=== PATIENT | male | born 1975 | race Caucasian/White ===

== ENCOUNTER 2019-11-23 20:50 | Observation (INO) ==
[2019-11-23] MEDS ORDERED: IOPAMIDOL 100 ML BOTTLE IV ONE (20:51)
[2019-11-23] MEDS ORDERED: KETOROLAC 30 MG/ML VIAL IV ONE (21:06)
[2019-11-23] MEDS ORDERED: 0.9 % SODIUM CHLORIDE 1,000 ML IV ONE (21:06)
--- NOTE | 2019-11-23 21:12 | Emergency Department Note ---
Abdominal Pain HPI - General Source: patient Mode of arrival: ambulatory Limitations: no limitations <Juan M Anders - Last Filed: 11/23/19 21:55> <Shmuel Payne - Last Filed: 11/24/19 09:48> - General Chief Complaint: Abdominal Pain Stated Complaint: abdominal pain Time Seen by Provider: 11/23/19 20:53 - History of Present Illness HPI Narrative: 44-year-old male patient presents emergency department chief complaint of sudden onset right lower quadrant abdominal pain x 10 hours. Patient tells me the pain abruptly started around 1100 this morning and is progressively worsened. He had one episode of diarrhea and thought he would get a bit better. Unfortunately the pain has persisted and worsened. He is unable to stand straight up. He describes the pain as a deep, sharp, stabbing pain to the right lower quadrant. He does still have his appendix. He denies fever, sweats, chills. He denies sinus congestion, cough, or runny nose. He denies shortness of breath. He denies retrosternal chest pain or palpitations. He denies nausea and vomiting. He denies dysuria or gross hematuria. He denies a history of renal calculi. He denies focal weakness. A review of his active problems shows the following: Palpitations, sinusitis, cholesteatoma, hypertension, and anxiety. (Juan M Anders) Right lower quadrant is been going on all day. Worsening with walking and standing. No recent trauma. No fever (Shmuel Payne) - Related Data Home Medications Medication Instructions Recorded Confirmed fluoxetine 10 mg tablet 20 mg PO QDAY 08/04/17 11/24/19 lisinopril 10 1 tab PO QDAY 08/04/17 11/24/19 mg-hydrochlorothiazide 12.5 mg tablet Metoprolol [place]/Hydrochlorothiaz 1 tab PO DAILY 11/23/19 11/24/19 [Metoprolol ER-Hctz 25-12.5 mg] Allergies Allergy/AdvReac Type Severity Reaction Status Date / Time No Known Drug Allergies Allergy Unverified 03/24/19 17:50 Review of Systems All systems ED: reviewed and negative except as stated. <Juan M Anders - Last Filed: 11/23/19 21:55> Abdominal Pain PMH - Social History Smoking status: Never smoker <MartitaJuan M Andre - Last Filed: 11/23/19 21:55> Physical Exam Limitations: no limitations General appearance: alert, grimacing, in no apparent distress (No acute respiratory distress), other (Well-developed, well-nourished 44-year-old male patient laying supine on the emergency room gurney in no distress until abdominal examination.) Head: atraumatic, normocephalic Eye: Present: normal appearance, PERRL, EOMI. Absent: scleral icterus, conjunctival injection ENT: Present: normal oropharynx, mucous membranes moist Neck: Present: trachea midline. Absent: lymphadenopathy, thyromegaly Chest: Present: symmetric chest wall rise Respiratory: Present: normal lung sounds bilaterally. Absent: respiratory distress, wheezes, stridor, accessory muscle use, prolonged expiratory phase Cardiovascular: Present: regular rate, normal rhythm. Absent: systolic murmur, diastolic murmur Abdominal: Present: soft, tenderness, guarding, rebound, hyperactive bowel sounds, psoas sign, tenderness at McBurney's Point. Absent: distention, rigidity, organomegaly, obturator sign, heel tap sign, mass Abdominal tenderness: Present: RLQ, severe Extremities: Present: normal inspection, full ROM, normal capillary refill Back: Present: normal inspection, full ROM Neurological: Present: alert, oriented X3 Psychiatric: Present: normal affect, normal mood Skin: Present: warm, dry, normal color <Juan M Anders - Last Filed: 11/23/19 21:55> <Shmuel Payne - Last Filed: 11/24/19 09:48> Significant right lower quadrant tenderness identified (Shmuel Payne) Course <Juan M Anders - Last Filed: 11/23/19 21:55> Course Narrative: Patient brought into the emergency department and a history and examination was performed. Saline lock was established and laboratory studies were drawn. CT scan of the abdomen and pelvis with contrast was ordered and reviewed. Patient was given normal saline 1000 mL bolus. Patient was also given 30 mg of Toradol IVP. Review the patient's preliminary laboratory studies at shift change show the following: CBC WBC 13.7, with a left shift. Chemistry panel showing glucose 125, ionized calcium 1.15, and all others normal limits. His CMP and CT scan results are pending. I discussed the case briefly with my collaborating physician (Dr. Payne) who is assumed the patient's care at shift change. All further treatment decisions and modalities will be carried out by Dr. Payne. (Juan M Anders) Vital Signs Temperature 98.6 F 11/23/19 20:51 Pulse Rate 103 H 11/23/19 20:51 Respiratory Rate 18 11/23/19 20:51 Blood Pressure 140/88 11/23/19 20:51 Pulse Oximetry (%) 97 11/23/19 20:51 Temperature 97.8 F 11/24/19 08:00 Pulse Rate 71 11/24/19 08:00 Respiratory Rate 18 11/24/19 08:00 Blood Pressure 103/65 11/24/19 08:00 Pulse Oximetry (%) 97 11/24/19 08:00 Abdominal Pain - Lab Data Lab results reviewed: Yes I reviewed the patient's lab results. Result diagrams: 11/23/19 21:17 11/23/19 21:17 <Juan M Anders - Last Filed: 11/23/19 21:55> - Lab Data Lab results reviewed: Yes I reviewed the patient's lab results. Result diagrams: 11/23/19 21:17 11/23/19 21:17 - Radiology Data Radiology results reviewed: Yes I reviewed the patient's radiology results. <Shmuel Payne - Last Filed: 11/24/19 09:48> - Lab Data Lab Results 11/23/19 11/23/19 11/23/19 Range/Units 21:17 21:17 21:19 WBC 13.7 H (4.50-11.00) K/mcL RBC 5.23 (4.63-6.08) M/mcL Hgb 15.3 (13.7-17.5) g/dL Hct 43.2 (40.1-51.0) % POC Hct 44.0 (41.0-55.0) % MCV 82.6 (80.0-100.0) fL MCH 29.3 (26.0-34.0) pg MCHC 35.4 (31.0-36.0) g/dL RDW 12.8 (11.5-14.5) % Plt Count 276 (140-440) K/mcL MPV 10.3 (7.4-10.4) fL Gran % 84.4 H (38.0-78.0) % Lymph % (Auto) 9.4 L (15.5-49.0) % [place] % (Auto) 5.6 (1.0-12.0) % Eos % (Auto) 0.2 (0.0-7.0) % Baso % (Auto) 0.4 (0.0-2.0) % Gran # 11.52 H (1.80-8.00) K/mcL Lymph # (Auto) 1.29 L (1.50-4.80) K/mcL [place]on # (Auto) 0.77 (0.10-0.90) K/mcL Eos # (Auto) 0.03 (0.00-0.70) K/mcL Baso # (Auto) 0.05 (0.00-0.30) K/mcL POC Sodium 138 (133-145) mmol/L Sodium 135 (133-145) mmol/L POC Potassium 3.4 (3.3-5.1) mmol/L Potassium 3.4 (3.3-5.1) mmol/L POC Chloride 102 (96-108) mmol/L Chloride 96 (96-108) mmol/L Carbon Dioxide 21 L (22-30) mmol/L POC Total CO2 23 (22-30) mmol/L Anion Gap 18.0 H (8-16) POC BUN 13 (6-20) mg/dl BUN 13 (6-20) mg/dl Creatinine 1.0 (0.7-1.2) mg/dl POC Creatinine 0.9 (0.7-1.2) mg/dl GFR Calculation 90 Glucose 127 H (70-105) mg/dL POC Glucose 125 H (70-105) mg/dL Calcium 10.0 (8.6-10.4) mg/dl POC WB Ioniz Calcium 1.15 L (1.16-1.32) mmol/L Total Bilirubin 0.7 (0.0-1.0) mg/dL AST 27 (0-37) U/l ALT 30 (0-40) U/l Alkaline Phosphatase 58 (39-117) U/L Total Protein 7.4 (5.9-8.4) gm/dL Albumin 4.8 (3.2-5.2) gm/dL Globulin 2.6 (2.2-3.7) gm/dL Albumin/Globulin Ratio 1.8 (1.0-2.3) - Radiology Data CT scan of the abdomen pelvis with contrast shows acute appendicitis. Please see full report (Shmuel Payne) Disposition Pt seen by ADMISSIONS SUPERVISOR/PA only: No (Dr. Payne.) <Juan M Anders - Last Filed: 11/23/19 21:55> Pt seen by ADMISSIONS SUPERVISOR/PA only: No <Shmuel Payne - Last Filed: 11/24/19 09:48> Clinical Impression: Abdominal pain Qualifiers: Abdominal location: right lower quadrant Qualified Code(s): R10.31 - Right lower quadrant pain Acute appendicitis Qualifiers: Acute appendicitis type: with localized peritonitis Appendicitis gangrene presence: unspecified whether gangrene present Appendicitis perforation presence: without perforation Appendicitis abscess presence: without abscess Dayne lified Code(s): K35.30 - Acute appendicitis with localized peritonitis, without perforation or gangrene Summary: I saw this patient with Juan M Anders PA-C. I agree with his evaluation management documentation. At shift change patient's management was turned over to me. Initially saw this patient when he came in first but then Martita ended up assuming care because our ER was quite busy. He weighs we were very suspicious for appendicitis and ordered CT scan of the abdomen pelvis. Laboratory corroborates. CT scan showed acute appendicitis. Discussed case with Dr. Danny Gil who agreed to accept the patient for further care and evaluation in the hospital. I agreed to write transition orders and keep him n.p.o. after midnight. Dr. Gil will see him in the morning and plans to take him to the operating room tomorrow morning. We will run antibiotics in the interim-Zosyn I took the time to discuss the plan with the patient and his family and they were agreeable with that (Shmuel Payne) Disposition: Xfer As Inpt ([facility]) Condition: Good
[2019-11-23 21:27] LABS: POC Blood Urea Nitrogen 13 mg/dl (6-20); POC CO2 23 mmol/L (22-30); POC Calcium, Ionized 1.15 mmol/L (1.16-1.32); POC Chloride 102 mmol/L (96-108); POC Creatinine 0.9 mg/dl (0.7-1.2); POC Glucose, Random 125 mg/dL (70-105); POC Potassium 3.4 mmol/L (3.3-5.1); POC Sodium 138 mmol/L (133-145)
[2019-11-23 21:51] LABS: Basophils # (Auto) 0.05 K/mcL (0.00-0.30); Basophils % (Auto) 0.4 % (0.0-2.0); Eosinophils # (Auto) 0.03 K/mcL (0.00-0.70); Eosinophils % (Auto) 0.2 % (0.0-7.0); Granulocytes % (Auto) 84.4 % (38.0-78.0); Hematocrit 43.2 % (40.1-51.0); Hemoglobin 15.3 g/dL (13.7-17.5); Lymphocytes # (Auto) 1.29 K/mcL (1.50-4.80); Lymphocytes % (Auto) 9.4 % (15.5-49.0); Mean Cell Volume 82.6 fL (80.0-100.0); Mean Corpuscular HGB Conc 35.4 g/dL (31.0-36.0); Mean Platelet Volume 10.3 fL (7.4-10.4); Monocytes # (Auto) 0.77 K/mcL (0.10-0.90); Monocytes % (Auto) 5.6 % (1.0-12.0); Platelet Count 276 K/mcL (140-440); RBC 5.23 M/mcL (4.63-6.08); Red Cell Distribution Width 12.8 % (11.5-14.5); WBC 13.7 K/mcL (4.50-11.00)
[2019-11-23 22:08] LABS: ALT/SGPT 30 U/l (0-40); AST/SGOT 27 U/l (0-37); Albumin 4.8 gm/dL (3.2-5.2); Albumin/Globulin Ratio 1.8 (1.0-2.3); Alkaline Phosphatase 58 U/L (39-117); Bilirubin,Total 0.7 mg/dL (0.0-1.0); Blood Urea Nitrogen 13 mg/dl (6-20); Carbon Dioxide 21 mmol/L (22-30); Chloride 96 mmol/L (96-108); Globulin 2.6 gm/dL (2.2-3.7); Glomerular Filtration Rate 90; Glucose 127 mg/dL (70-105)
[2019-11-23] MEDS ORDERED: PIPERACILLIN SODIUM/TAZOBACTAM 3.375 GM in DEXTROSE 5% IN WATER 50 ML IV ONE (22:28)
[2019-11-23] MEDS ORDERED: ONDANSETRON 4 MG/2 ML VIAL IV ONE (22:29)
[2019-11-23] MEDS ORDERED: HYDROmorphone 2 MG/ML VIAL IV SCH (22:30)
[2019-11-23] MEDS ORDERED: ONDANSETRON 4 MG/2 ML VIAL IV PRN (22:41)
[2019-11-23] MEDS ORDERED: NALOXONE HCL 0.4 MG/ML VIAL IV PRN (22:41)
[2019-11-24] MEDS: 0.9 % SODIUM CHLORIDE 1,000 ML IV SCH ×4 (00:07→20:22)
[2019-11-24] MEDS ORDERED: ACETAMINOPHEN 1,000 MG/100 ML BOTTLE IV PRN ×2 (03:26→13:10)
[2019-11-24] MEDS ORDERED: HYDROmorphone 2 MG/ML VIAL IV PRN ×3 (03:28→13:10)
[2019-11-24] MEDS ORDERED: ACETAMINOPHEN 1,000 MG/100 ML BOTTLE IV ONE ×3 (03:29→13:10)
--- NOTE | 2019-11-24 07:54 | Cat Scan Report ---
History: Right lower quadrant pain TECHNIQUE: The patient was imaged following intravenous but no oral contrast scanning during the portal venous phase from the diaphragm to the symphysis pubis. Sagittal and coronal reformats are created. The radiation exposure was limited using dose reduction technology. FINDINGS: The lung bases are clear. The liver is normal size but there is mild to moderate generalized fatty infiltration. The gallbladder and bile ducts are normal. The spleen, pancreas, adrenals and kidneys are normal. The aorta and inferior vena cava are normal and there is no atherosclerotic disease. The appendix is enlarged and inflamed. Measures 1.2 cm in transverse dimension. There is periappendiceal inflammation of the fat but no abscess or free fluid are present. There is no appendicolith. The remainder of the large and small intestine are normal and there is no bowel obstruction or ileus. No ascites is present. Bladder, prostate and seminal vesicles are normal. There is no adenopathy. IMPRESSION: Acute appendicitis Fatty infiltration of the liver Interpreted and Authenticated by: Candido Youssef 11/24/19
[2019-11-24 08:47] LABS: Appearance,Urine CLEAR; Bacteria,Urine 0 /hpf (0); Bilirubin,Urine NEG (NEG); Color,Urine YELLOW; Culture Indicated,Urine NO; Glucose,Urine (UA) NEGATIVE (NEG); Ketones,Urine NEG (NEG); Leukocyte Esterase,Urine NEG /uL (NEG); Mucus,Urine FEW /hpf (0); Nitrate,Urine NEG (NEG); Protein,Urine NEG (NEG); Urine Blood 0.2 mg/dL (<0.03); Urine RBC 1 /hpf (0-1); Urine Squamous Epithelial Cell 0 /hpf (0-4); Urine WBC 1 /hpf (0-4); Urobilinogen,Urine NEG (NEG)
--- NOTE | 2019-11-24 11:15 | General Surg History&Physical ---
History of Present Illness Patient information: Note initiated : 11/24/19 at 11:12 am Service Date, if different from initiated Date: [] Patient: Lucio Alford a 44 y/o M admitted on 11/23/19 for abdominal pain. Chief Complaint: [] HPI: Mr. Alford is a 44 year old M admitted with acute appendicitis. He had onset of pain in his right lower quadrant yesterday morning. It progressed throughout the day became more severe. He denies nausea, vomiting, fever, sweats or change in bowel habits. He was seen in the emergency room because of severe pain and CT confirms acute appendicitis. He is counseled and will have surgery later today.. Review of Systems All systems PM: reviewed and no additional remarkable complaints except as stated (negative except as noted in HPI and below) - Constitutional headache(s) ( L obesity tolerate Lobatos,) Past History Past medical history: Hypertension Past surgical history: Arthroscopic surgery, left shoulder. Arthroscopic surgery left knee. . Ear surgery 2 for cholesteatoma Past family history: Mother age 72 due to stroke; she also had diabetes and hypertension Father alive in good health Past social history: Never smoker Medications and Allergies Home Medications Medication Instructions Recorded Confirmed Type fluoxetine 10 mg tablet 20 mg PO QDAY 08/04/17 12/06/19 History lisinopril 10 1 tab PO QDAY 08/04/17 12/06/19 History mg-hydrochlorothiazide 12.5 mg tablet Metoprolol [place]/Hydrochlorothiaz 1 tab PO DAILY 11/23/19 12/06/19 History [Metoprolol ER-Hctz 25-12.5 mg] Allergies Allergy/AdvReac Type Severity Reaction Status Date / Time No Known Drug Allergies Allergy Unverified 12/06/19 10:29 Exam Temp Pulse Resp BP Pulse Ox 97.8 F 71 18 103/65 97 11/24/19 08:00 11/24/19 08:00 11/24/19 08:00 11/24/19 08:00 11/24/19 08:00 - General physical appearance well developed, well nourished, no distress - Eyes PERRL, normal ocular movement - ENT normal pinna, normal nares, normal mucosa, no hearing loss, no congestion - Head Head exam IM: Present: atraumatic, normocephalic - Neck no masses, no bruits, trachea midline, no lymphadenopathy, no venous distension - Cardiovascular Cardiovascular exam IM: Present: normal rate and rhythm - Respiratory normal expansion, normal respiratory effort, clear to percussion, clear to auscultation - Abdomen Abdomen: Present: soft, tender (tenderness with mild guarding right lower quadrant; active bowel sounds), bowel sounds Hernia: Present: none - Genitourinary Present: normal penis with no external lesions - Integumentary Present: no rash, no growths, no abnormal pigmentation - Neurologic Present: normal coordination, normal sensation - Musculoskeletal Present: normal gait ( ), normal posture - Psychiatric Present: oriented to time ( weight less than 10), oriented to person, oriented to place, speech is normal, memory intact Assessment and Plan (1) Acute appendicitis Patient is counseled for laparoscopic appendectomy. His preoperative evaluation is complete. His surgery will be performed later today. Status: Acute Comment: laparoscopic appendectomy 24 November 2019 Qualifiers: Acute appendicitis type: with localized peritonitis Appendicitis gangrene presence: unspecified whether gangrene present Appendicitis perforation presence: without perforation Appendicitis abscess presence: without abscess Qualified Code(s): K35.30 - Acute appendicitis with localized peritonitis, without perforation or gangrene (2) Hypertension, essential Status: Chronic
[2019-11-24] MEDS ORDERED: SCOPOLAMINE 1 PATCH PATCH TOPICAL PRN ×2 (11:16→13:10)
[2019-11-24] MEDS ORDERED: IPRATROPIUM/ALBUTEROL 3 ML AMPUL.NEB NEB PRN ×4 (11:16→13:10)
[2019-11-24] MEDS ORDERED: PIPERACILLIN SODIUM/TAZOBACTAM 3.375 GM in DEXTROSE 5% IN WATER 50 ML IV SCH (12:00)
[2019-11-24] MEDS ORDERED: LIDOCAINE HCL/PF 100 MG/5 ML SYRINGE IV ONE (12:09)
[2019-11-24] MEDS ORDERED: PROPOFOL 200 MG/20 ML VIAL IV ONE (12:09)
[2019-11-24] MEDS ORDERED: GLYCOPYRROLATE 0.2 MG/ML VIAL IV ONE (12:09)
[2019-11-24] MEDS ORDERED: fentaNYL 100 MCG/2 ML VIAL IV ONE (12:09)
[2019-11-24] MEDS ORDERED: DEXAMETHASONE 10 MG/ML VIAL IV ONE (12:09)
[2019-11-24] MEDS ORDERED: SUGAMMADEX SODIUM 200 MG/2 ML VIAL IV ONE (12:09)
[2019-11-24] MEDS ORDERED: KETAMINE 100 MG/ML ML IV ONE (12:09)
[2019-11-24] MEDS ORDERED: MIDAZOLAM 2 MG/2 ML VIAL IV ONE (12:09)
[2019-11-24] MEDS ORDERED: ROCURONIUM 10 MG/ML ML IV ONE (12:09)
[2019-11-24] MEDS ORDERED: ONDANSETRON 4 MG/2 ML VIAL IV ONE (12:09)
[2019-11-24] MEDS ORDERED: ONDANSETRON 4 MG/2 ML VIAL IV PRN ×3 (12:39→13:10)
[2019-11-24] MEDS ORDERED: KETOROLAC 30 MG/ML VIAL IV PRN ×2 (12:39→13:10)
[2019-11-24] MEDS ORDERED: fentaNYL 100 MCG/2 ML VIAL IV PRN ×2 (12:39→13:10)
[2019-11-24] MEDS ORDERED: BENZOCAINE/MENTHOL 1 LOZENGE PO PRN ×2 (12:39→13:10)
[2019-11-24] MEDS ORDERED: LACTATED RINGERS 1,000 ML IV SCH ×2 (12:45→13:10)
--- NOTE | 2019-11-24 12:49 | Brief Operative Note ---
Date of procedure: 11/24/19 Pre-op diagnosis: acute appendicitis Post-op diagnosis: other (acute appendicitis) Procedure: LAPAROSCOPIC APPENDECTOMY Grafts/Implants: No Anesthesia: GETA Findings: ACUTE SUPPURATIVE APPENDICITIS Complications: none Surgeon: Yari Gil Estimated blood loss (cc): 10 Specimens Removed/Pathology: other (APPENDIX) Condition: stable Disposition: PACU
[2019-11-24] MEDS ORDERED: NALOXONE HCL 0.4 MG/ML VIAL IV PRN (13:10)
[2019-11-24] MEDS ORDERED: MEPERIDINE 25 MG/ML SYRINGE IV PRN (13:10)
[2019-11-24] MEDS ORDERED: MEPERIDINE 50 MG/ML INJECTION ONE (13:24)
[2019-11-24] MEDS: MEPERIDINE 25 MG/ML SYRINGE IV PRN ×2 (13:26→13:35)
[2019-11-24] MEDS: PIPERACILLIN SODIUM/TAZOBACTAM 3.375 GM in DEXTROSE 5% IN WATER 50 ML IV SCH (17:57)
[2019-11-24] MEDS: HYDROmorphone 2 MG/ML VIAL IV PRN ×3 (18:08→22:32)
[2019-11-25] MEDS: PIPERACILLIN SODIUM/TAZOBACTAM 3.375 GM in DEXTROSE 5% IN WATER 50 ML IV SCH ×3 (00:41→11:17)
[2019-11-25] MEDS: HYDROmorphone 2 MG/ML VIAL IV PRN ×4 (02:28→14:55)
[2019-11-25] MEDS: 0.9 % SODIUM CHLORIDE 1,000 ML IV SCH ×2 (03:38→08:56)
[2019-11-25] MEDS ORDERED: FLUoxetine HCL 20 MG CAPSULE PO SCH ×2 (09:00)
[2019-11-25] MEDS ORDERED: DOCUSATE SODIUM 100 MG CAPSULE PO PRN (09:37)
[2019-11-25 10:26] LABS: Basophils # (Auto) 0.01 K/mcL (0.00-0.30); Basophils % (Auto) 0.1 % (0.0-2.0); Eosinophils # (Auto) 0 K/mcL (0.00-0.70); Eosinophils % (Auto) 0 % (0.0-7.0); Granulocytes % (Auto) 85.9 % (38.0-78.0); Hematocrit 37.9 % (40.1-51.0); Hemoglobin 13.1 g/dL (13.7-17.5); Lymphocytes # (Auto) 0.79 K/mcL (1.50-4.80); Lymphocytes % (Auto) 7.4 % (15.5-49.0); Mean Cell Volume 84.8 fL (80.0-100.0); Mean Corpuscular HGB Conc 34.6 g/dL (31.0-36.0); Mean Platelet Volume 10.6 fL (7.4-10.4); Monocytes % (Auto) 6.6 % (1.0-12.0); Platelet Count 250 K/mcL (140-440); RBC 4.47 M/mcL (4.63-6.08); Red Cell Distribution Width 12.9 % (11.5-14.5); WBC 10.6 K/mcL (4.50-11.00)
--- NOTE | 2019-11-25 13:39 | Surgical Pathology Report ---
HISTOLOGY SPECIMEN MICROSCOPIC DIAGNOSIS APPENDIX, APPENDECTOMY: -- ACUTE APPENDICITIS WITH SEROSITIS. (DMT:adj) PROCEDURAL IMPRESSION Acute appendicitis. GROSS DESCRIPTION Received in formalin designated appendix, is a aguilera-sheldon appendix with sheldon attached fat. It is 9.2 cm in length by 0.8 cm in diameter. The margin is stapled. It is inked black. There is possible aguilera-sheldon exudate on the serosal surface. Sectioning shows pink-sheldon fluid. Grossly there are no perforations identified. Information Systems Administrator sections are submitted in one cassette. (SCB:adj) Electronically Signed by: Cam Barron M.D.
--- NOTE | 2019-11-25 15:16 | Discharge Summary ---
Providers - Providers Patient information: Note initiated : 11/25/19 at 3:12 pm Service Date, if different from initiated Date: [] Patient: Lucio Alford 44 y/o M admitted on 11/23/19 for abdominal pain. Chief Complaint: [] Date of admission: 11/23/19 Discharge date: 11/25/19 Attending physician: Yari Gil Hospitalization Hospital Course: 44-year-old male presents right lower quadrant pain. He was evaluated in the emergency room with findings of acute appendicitis. He was admitted and underwent laparoscopic appendectomy uneventfully. He is progressing well and is pain is fairly well controlled. He is tolerating diet and having flatus. He is stable enough for discharge. White blood count was normal. Discharge diagnosis: acute appendicitis Reason for admission: abdominal pain nausea and vomiting Procedures: Laparoscopic appendectomy Pertinent studies/significant findings: CT of abdomen and pelvis with contrast Complications: None Exam Temp Pulse Resp BP Pulse Ox 98.1 F 84 18 123/74 95 11/25/19 11:51 11/25/19 11:51 11/25/19 11:51 11/25/19 11:51 11/25/19 11:51 - General physical appearance well developed, well nourished, no distress - Eyes PERRL, normal ocular movement - ENT normal pinna, normal nares, normal mucosa, no hearing loss, no congestion - Head Head exam IM: Present: atraumatic, normocephalic - Neck no masses, no bruits, trachea midline, no lymphadenopathy, no venous distension - Cardiovascular Cardiovascular exam IM: Present: normal rate and rhythm - Respiratory normal expansion, normal respiratory effort, clear to percussion, clear to auscultation - Abdomen Abdomen: Present: soft, tender (mild tenderness in the lower abdomen and right lower quadrant; good active bowel sounds; mild distention), bowel sounds Hernia: Present: none - Genitourinary Present: normal penis with no external lesions - Integumentary Present: no rash, no growths, no abnormal pigmentation - Neurologic Present: normal coordination, normal sensation - Musculoskeletal Present: normal gait, normal posture - Psychiatric Present: oriented to time, oriented to person, oriented to place, speech is normal, memory intact Discharge Plan - Patient/Caregiver Discharge Instructions Activity: increase activity as tolerated Diet: Regular Diet Prescriptions: oxyCODONE/APAP [Percocet 10-325Mg] 1 tab PO Q4HP PRN #60 tablet PRN Reason: Pain Transmission Status: Sent to [facility] - Follow up Plan Follow up with: Sergey Lin DO [Primary Care Provider] - Yari Gil MD [Physician] - Disposition: Home, Self-Care Prognosis: Good Rehab Potential: Good I certify that the patient requires SNF services.: No Overall status at discharge: patient is progressing back to baseline Pending Studies Resuscitation Status Full Code Diet Regular Diet Start ThuNov 2537 Docusate Sodium (Colace) 100 mg PO BIDP PRN PRN Reason: Constipation Last Admin: 11/25/19 15:00 Dose: 100 mg Documented by: HANNAH Fluoxetine HCl (Prozac) 20 mg PO DAILY [facility] Last Admin: 11/25/19 08:56 Dose: 20 mg Documented by: NIRALI Hydromorphone HCl (Dilaudid) 2 mg IV Q2HP PRN; Protocol PRN Reason: Per Pain Protocol Last Admin: 11/25/19 14:55 Dose: 2 mg Documented by: Admin: 11/25/19 10:26 Dose: 2 mg Documented by: Admin: 11/25/19 05:30 Dose: 2 mg Documented by: Admin: 11/25/19 02:28 Dose: 2 mg Documented by: Admin: 11/24/19 22:32 Dose: 2 mg Documented by: Admin: 11/24/19 20:19 Dose: 2 mg Documented by: Admin: 11/24/19 18:08 Dose: 2 mg Documented by: ARLIN Sodium Chloride (Sodium Chloride 0.9%) 1,000 mls @ 150 mls/hr IV .Q6H40M [facility] Last Admin: 11/25/19 08:56 Dose: Not Given Documented by: Admin: 11/25/19 03:38 Dose: 150 mls/hr Documented by: Infusion: 11/25/19 03:03 Dose: 150 mls/hr Documented by: Admin: 11/24/19 20:22 Dose: 150 mls/hr Documented by: Infusion: 11/24/19 20:09 Dose: 150 mls/hr Documented by: [email or web address] Admin: 11/24/19 13:28 Dose: 150 mls/hr Documented by: [email or web address] Piperacillin Sod/Tazobactam (Sod 3.375 gm/ Dextrose) 50 mls @ 100 mls/hr IV Q6H CHAI; Protocol Last Infusion: 11/25/19 12:15 Dose: 100 mls/hr Documented by: [email or web address] Admin: 11/25/19 11:17 Dose: 100 mls/hr Documented by: Infusion: 11/25/19 06:01 Dose: 100 mls/hr Documented by: Admin: 11/25/19 05:31 Dose: 100 mls/hr Documented by: Infusion: 11/25/19 01:11 Dose: 100 mls/hr Documented by: Admin: 11/25/19 00:41 Dose: 100 mls/hr Documented by: Infusion: 11/24/19 18:27 Dose: 100 mls/hr Documented by: Admin: 11/24/19 17:57 Dose: 100 mls/hr Documented by: ARLIN Shift Summary 11/25/19 03:47 Shift Summary by Rober Pryor Pt had lap Appy yesterday. Pt cont to report occaisional pain. Pt receiving 2 mg IV dilaudid for pain with resolution. Pt with 3 lap sites to abd with folded gauze secured with tegaderm in place. old dry drainage shadowing through gauze. Pt up to BR with assist to unplug IV pump otherwise independent, gait and stance steady. Pt taking FLIQ diet without difficulty, no signs of N/V noted. Pt with 20 ga IV to left AC with NS infusing at 150 mL per hour. Pt with multiple visitors during the day and early evening, Pt appears in good spirits. Plan for DC to home today. Initialized on 11/25/19 03:47 - END OF NOTE
--- NOTE | 2019-11-29 12:47 | Operative Note ---
DATE OF OPERATION: 11/24/2019 PREOPERATIVE DIAGNOSIS: Acute appendicitis. POSTOPERATIVE DIAGNOSIS: Acute appendicitis. PROCEDURE: Laparoscopic appendectomy. SURGEON: Yari Gil M.D. FINDINGS: Acute suppurative appendicitis. DESCRIPTION OF PROCEDURE: Under general anesthesia, the patient's abdomen was prepped and draped in a sterile field. A timeout procedure was carried out as per protocol. Supraumbilical midline incision was made. Veress needle was inserted and the abdomen was insufflated with 2 liters of CO2. A 12 mm port was placed. Laparoscope was placed. The patient was positioned in deep Trendelenburg position. Under videoscopic guidance, a 12 mm port was placed in the left lower quadrant and a 5 mm port in the suprapubic midline. The patient was rotated to the left. Mobilization of the cecum was carried out, and at the base of the cecum there was an acutely inflamed appendix laying in the gutter. It was grasped with a self-retaining grasper. A window was made in the mesoappendix at the base of the appendix. The appendix was transected using Endo DIEGO stapler. Mesoappendix was transected using Endo DIEGO stapler. The appendix was placed in an EndoCatch pouch and retrieved. Irrigation was carried out until the fluid returned clear. CO2 was allowed to escape from the abdomen and the ports were removed. The patient tolerated the procedure well. The fascia at the umbilicus was closed with 0 Vicryl. Skin incisions were closed with dieter. Tegaderm dressings were placed. The patient tolerated the procedure well. He was awakened from anesthesia uneventfully, transferred to a bed, and taken to the postanesthetic care unit in satisfactory condition. LCS:simon Job ID: [id number] Doc ID: [id number] Yari Gil M.D.
== END 2019-11-25 16:00 | disposition home or self-care (01) ==
LOC: MEDSUR 20:50 → ED 20:50 → MEDSUR 23:28
PROVIDERS: ADMIT Family Medicine Adult Medicine; ATTEND Family Medicine Adult Medicine